=== PATIENT | male | born 1970 | race African-American/Black ===

== ENCOUNTER 2017-10-14 04:16 | Emergency (ER) | payer OTHER ==
[~2017-10-14] VITALS: Ht 182.9 cm; Wt 95.3 kg
[2017-10-14] MEDS ORDERED: Haloperidol 5mg/ml Inj ONE (04:18)
[2017-10-14] MEDS ORDERED: LORazepam Inj 2mg/ml 1ml ONE (04:18)
[2017-10-14] MEDS ORDERED: LORazepam Inj 2mg/ml 1ml IM ONE (04:30)
[2017-10-14] MEDS ORDERED: Haloperidol 5mg/ml Inj IM ONE (04:30)
[2017-10-14] MEDS ORDERED: DiphenhydrAMINE 50mg/ml Inj ONE (04:37)
[2017-10-14] MEDS ORDERED: DiphenhydrAMINE 50mg/ml Inj IM ONE (04:45)
[2017-10-14 05:13] LABS: BASOPHILS % (AUTO) 1.1 % (0.0-2.0); EOSINOPHILS % (AUTO) 1.4 % (0.0-3.0); HEMATOCRIT 46.5 % (42.0-52.0); HEMOGLOBIN 15.4 G/DL (14.2-18.0); LYMPHOCYTES % (AUTO) 19.3 % (20.0-45.0); MEAN CORPUSCULAR VOLUME 86 FL (80-99); MONOCYTES % (AUTO) 8.1 % (1.0-10.0); NEUTROPHILS % (AUTO) 70.1 % (45.0-75.0); PLATELET COUNT 242 K/UL (150-450); RED CELL DISTRIBUTION WIDTH 12.4 % (11.6-14.8); WHITE BLOOD COUNT 6.3 K/UL (4.8-10.8)
[2017-10-14 05:19] LABS: APPEARANCE,URINE CLEAR; BILIRUBIN, URINE NEGATIVE (NEGATIVE); GLUCOSE, URINE (UA) NEGATIVE (NEGATIVE); KETONES,URINE NEGATIVE (NEGATIVE); LEUKOCYTE ESTERASE ,URINE NEGATIVE (NEGATIVE); NITRITE,URINE NEGATIVE (NEGATIVE); PH,URINE 6 (4.5-8.0); PROTEIN,URINE 2+ (NEGATIVE); UROBILINOGEN,URINE NORMAL MG/DL (0.0-1.0)
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
[2017-10-14 05:24] LABS: COLOR,URINE YELLOW
[2017-10-14 05:32] LABS: ANION GAP 15 mmol/L (5-15); BLOOD UREA NITROGEN 20 mg/dL (7-18); CALCIUM 9.6 MG/DL (8.5-10.1); CARBON DIOXIDE 22 MMOL/L (21-32); CHLORIDE 107 MMOL/L (98-107); CREATININE 1.4 MG/DL (0.55-1.30); SODIUM 144 MMOL/L (136-145)
[2017-10-14 05:34] LABS: POTASSIUM 2.7 MMOL/L (3.5-5.1)
[2017-10-14 06:15] VITALS: BP 120/68
[2017-10-14 13:10] VITALS: BP 117/72
== END 2017-10-14 14:50 | disposition home or self-care (01) ==
LOC: EDBD 04:16 → EMR 04:28
DX: F23 Brief psychotic disorder (principal); F12.929 Cannabis use, unspecified with intoxication, unspecified; E87.6 Hypokalemia; I10 Essential (primary) hypertension
CPT/HCPCS: 36415; 80048; 80307; 80329; 81001; 85025; 96365; 96372; 99284; J1630; J3480; 96360